=== PATIENT | female | born 1985 | race African-American/Black ===

== ENCOUNTER 2017-07-04 02:44 | Inpatient (IN) | payer MEDICAID ==
[~2017-07-04] VITALS: Ht 170.2 cm; Wt 111.0 kg
[2017-07-04] MEDS ORDERED: OXYTOCIN 30U/ 0.9% NaCL 500ML 500 ML IV ONE (02:46)
[2017-07-04] MEDS: D5%-LACTATED RINGERS 1,000 ML IV SCH ×2 (02:46→10:46)
[2017-07-04] MEDS ORDERED: NEWBORN KIT ONE ×3 (02:48→03:22)
[2017-07-04] MEDS ORDERED: OXYTOCIN 30U/ 0.9% NaCL 500ML 500 ML ONE (02:48)
[2017-07-04] MEDS ORDERED: LIDOCAINE 1%, 20ML ONE (02:49)
[2017-07-04] MEDS ORDERED: FENTANYL PF 100 MCG/2ML ONE ×4 (02:49→14:32)
[2017-07-04] MEDS ORDERED: MISOPROSTOL 200 MCG TABLET ONE (02:49)
[2017-07-04 03:00] VITALS: BP 123/62
[2017-07-04] MEDS: LACTATED RINGERS 1,000 ML IV SCH ×8 (03:00→21:02)
[2017-07-04] MEDS ORDERED: CALCIUM CARBONATE 500 MG TAB.CHEW PO PRN ×2 (03:00→11:30)
[2017-07-04] MEDS ORDERED: ONDANSETRON 2MG/ML, 2ML IVPush PRN (03:00)
[2017-07-04] MEDS ORDERED: SODIUM CITRATE/CITRIC ACID 30 ML UDC PO PRN (03:00)
[2017-07-04] MEDS ORDERED: TERBUTALINE 1 MG/ML, 1ML IVPush PRN ×2 (03:00)
[2017-07-04] MEDS ORDERED: PLEASE ENTER ALLERGIES MC SCH ×2 (03:00)
[2017-07-04] MEDS ORDERED: FENTANYL PF 100 MCG/2ML IVPush PRN ×2 (03:00→15:00)
[2017-07-04] MEDS ORDERED: METOCLOPRAMIDE 5 MG/ML, 2ML IVPush PRN (03:00)
[2017-07-04 03:15] LABS: HEMATOCRIT 44.3 % (34.6-47.8); HEMOGLOBIN 14.5 g/dL (11.7-16.4); WHITE BLOOD COUNT 11.3 x10^3/uL (3.4-10)
[2017-07-04] MEDS ORDERED: FENTANYL/BUPIV./NS/PF 250 ML EPIDCONT ONE (03:30)
[2017-07-04] MEDS ORDERED: BUPIVACAINE 0.25% ONE (03:30)
[2017-07-04] MEDS ORDERED: LIDOCAINE/PF 1.5%-EPI 1:200K, 30ML ONE (03:33)
[2017-07-04] MEDS ORDERED: TERBUTALINE 1 MG/ML, 1ML ONE (04:14)
[2017-07-04] MEDS ORDERED: HYDROmorphone 2 MG/ML, 1ML ONE (10:55)
[2017-07-04] MEDS ORDERED: LIDOCAINE/MPF 2%-EPI 1:200K, 20 ML ONE (10:57)
[2017-07-04] MEDS ORDERED: METOCLOPRAMIDE 5 MG/ML, 2ML ONE (10:58)
[2017-07-04] MEDS ORDERED: SODIUM CITRATE/CITRIC ACID 30 ML UDC ONE (10:58)
[2017-07-04] MEDS: OXYTOCIN 30U/ 0.9% NaCL 500ML 500 ML IV SCH ×2 (11:02→21:02)
[2017-07-04] MEDS ORDERED: OXYTOCIN 10 UNITS/ML, 1ML ONE (11:09)
[2017-07-04] MEDS ORDERED: CEFAZOLIN 1,000 MG ONE (11:09)
[2017-07-04] MEDS ORDERED: ONDANSETRON 2MG/ML, 2ML ONE (11:09)
[2017-07-04] MEDS ORDERED: ONDANSETRON 2MG/ML, 2ML IV PRN (11:30)
[2017-07-04] MEDS ORDERED: MISOPROSTOL 200 MCG TABLET PR PRN (11:30)
[2017-07-04] MEDS ORDERED: CARBOPROST TROMETHAMINE 250 MCG/ML, 1ML IM PRN (11:30)
[2017-07-04] MEDS ORDERED: METHYLERGONOVINE 0.2 MG/ML IM PRN (11:30)
[2017-07-04] MEDS ORDERED: AZITHROMYCIN 500 MG in SODIUM CHLORIDE 0.9% 250 ML IV ONE (12:00)
[2017-07-04] MEDS ORDERED: OXYcodone 5 MG/5 ML ORAL.SOL UDC ONE ×2 (13:27→14:32)
[2017-07-04] MEDS ORDERED: OXYcodone 5 MG/5 ML ORAL.SOL UDC PO ONE (14:00)
[2017-07-04] MEDS ORDERED: OXYcodone 5 MG/5 ML ORAL.SOL UDC PO PRN (15:00)
[2017-07-04 15:30] VITALS: BP 122/73
[2017-07-04] MEDS: OXYcodone IR 5MG TABLET PO PRN ×2 (16:24→20:18)
[2017-07-04] MEDS: KETOROLAC 30 MG/1 ML IVPush SCH (17:54)
[2017-07-04 19:51] LABS: HEMATOCRIT 37.1 % (34.6-47.8); HEMOGLOBIN 12.3 g/dL (11.7-16.4)
[2017-07-04 20:00] VITALS: BP 115/66
[2017-07-04] MEDS: DOCUSATE 100 MG CAPSULE PO PRN (20:18)
[2017-07-05] MEDS: KETOROLAC 30 MG/1 ML IVPush SCH ×3 (00:28→11:52)
[2017-07-05 01:10] VITALS: BP 120/72
[2017-07-05] MEDS: LACTATED RINGERS 1,000 ML IV SCH ×5 (03:02→19:02)
[2017-07-05 04:00] VITALS: BP 99/47
[2017-07-05] MEDS: OXYTOCIN 30U/ 0.9% NaCL 500ML 500 ML IV SCH ×2 (07:02→17:02)
[2017-07-05] MEDS ORDERED: OXYcodone/APAP 10/325MG TABLET ONE (08:09)
[2017-07-05 08:10] VITALS: BP 96/66
[2017-07-05] MEDS ORDERED: OXYcodone IR 5MG TABLET ONE (08:10)
[2017-07-05] MEDS: DOCUSATE 100 MG CAPSULE PO PRN ×2 (08:15→23:34)
[2017-07-05] MEDS: SIMETHICONE 80 MG CHEW TAB PO PRN ×3 (08:15→23:34)
[2017-07-05] MEDS: OXYcodone IR 5MG TABLET PO PRN ×2 (10:41→17:42)
[2017-07-05] MEDS: PRENATAL VIT/IRON/FA 1 EACH TABLET PO SCH (10:41)
[2017-07-05 12:25] VITALS: BP 122/67
[2017-07-05] MEDS: IBUPROFEN 600 MG TABLET PO PRN ×2 (17:43→23:34)
[2017-07-05 20:30] VITALS: BP 121/64
[2017-07-06 07:30] VITALS: BP 122/77
[2017-07-06] MEDS: DOCUSATE 100 MG CAPSULE PO PRN (10:14)
[2017-07-06] MEDS: PRENATAL VIT/IRON/FA 1 EACH TABLET PO SCH (10:14)
[2017-07-06] MEDS ORDERED: OXYC-302 PO (12:49)
[2017-07-06] MEDS ORDERED: IBUP-1222 PO (12:49)
[2017-07-06] MEDS ORDERED: DOCU-131 PO (12:53)
== END 2017-07-06 15:22 | disposition home or self-care (01) | DRG 766 ==
LOC: LDOP 02:44 → LDIP 02:49 → 2NW 15:21
PROVIDERS: ADMIT Student in an Organized Health Care Education/Training Program; ATTEND Student in an Organized Health Care Education/Training Program
PROC: 10D00Z1 Extraction of Products of Conception, Low, Open Approach (ICD-10-PCS; principal; 2017-07-04)
PROC: 3E0E7GC Introduction of Other Therapeutic Substance into Products of Conception, Via Natural or Artificial Opening (ICD-10-PCS; 2017-07-04)
PROC: 10907ZC Drainage of Amniotic Fluid, Therapeutic from Products of Conception, Via Natural or Artificial Opening (ICD-10-PCS; 2017-07-04)
DX: O34.211 Maternal care for low transverse scar from previous cesarean delivery (principal); J45.909 Unspecified asthma, uncomplicated; O76 Abnormality in fetal heart rate and rhythm complicating labor and delivery; O32.6XX0 Maternal care for compound presentation, not applicable or unspecified; O69.81X0 Labor and delivery complicated by cord around neck, without compression, not applicable or unspecified; O99.52 Diseases of the respiratory system complicating childbirth; Z37.0 Single live birth; Z88.0 Allergy status to penicillin; Z3A.39 39 weeks gestation of pregnancy; Z88.2 Allergy status to sulfonamides; Z91.040 Latex allergy status; Z82.49 Family history of ischemic heart disease and other diseases of the circulatory system; Z82.3 Family history of stroke; Z82.0 Family history of epilepsy and other diseases of the nervous system; Z81.8 Family history of other mental and behavioral disorders; Z80.0 Family history of malignant neoplasm of digestive organs
CPT/HCPCS: 36415; 82803; 85025; 86850; 86900; J0456; J0690; J1170; J1885; J2405; J3010; J3490; J2590; J2765; J7050; J7120

== ENCOUNTER 2017-11-19 18:34 | Emergency (ER) | payer MEDICAID ==
[~2017-11-19] VITALS: Ht 170.2 cm; Wt 104.0 kg
[~2017-11-19 18:34] MED LIST: DOCU-131 PO; IBUP-1222 PO; OXYC-302 PO
[2017-11-19 18:37] VITALS: BP 117/79
== END 2017-11-19 19:37 | disposition home or self-care (01) ==
LOC: ED 19:20
DX: H61.21 Impacted cerumen, right ear (principal); H65.02 Acute serous otitis media, left ear
CPT/HCPCS: 99283

== ENCOUNTER 2019-03-04 09:44 | Outpatient (CLI) | payer MEDICAID ==
[2019-03-04] MEDS ORDERED: CBD Oil PO (10:21)
[2019-03-04] MEDS ORDERED: ESCI20TA10 PO (10:21)
== END 2019-03-04 23:59 | disposition home or self-care (01) ==
LOC: STAR 09:44
PROVIDERS: ATTEND Specialist
DX: Z02.9 Encounter for administrative examinations, unspecified (principal)